=== PATIENT | female | born 2000 | race Caucasian/White ===

== ENCOUNTER → 2019-03-23 | Outpatient (CLI) | payer BC ==
--- NOTE | 2019-03-23 16:38 | Diagnostic Imaging Report ---
Right knee MRI without contrast. History: Knee pain. Internal derangement. Decreased range of motion. Swelling. Comparison: None. Technique: Multiplanar multi-sequence MRI of the knee without contrast. Findings: Medial compartment: No meniscal tear, cartilage abnormality, or MCL tear. Lateral compartment: No meniscal tear or cartilage abnormality. The LCL complex is normal. Intercondylar notch: The ACL and PCL are intact. Patellofemoral compartment: No chondromalacia or patellar dislocation. Extensor mechanism: The quadriceps and patellar tendons are normal. Other findings: There is a joint effusion and synovitis. There is no acute fracture, subluxation or avascular necrosis. IMPRESSION: Small joint effusion and mild synovitis. No meniscal tear, collateral tear or cruciate ligament tear. Signed by: Dr. Cristian Bone M.D. on 03/23/2019 4:35 PM
== END ==
LOC: MRI 15:05
PROVIDERS: ATTEND Specialist
DX: M23.91 Unspecified internal derangement of right knee (principal)